=== PATIENT | male | born 1990 | race Caucasian/White ===

== ENCOUNTER 2017-06-10 12:03 | Inpatient (IN) | payer OTHER ==
[~2017-06-10] VITALS: Ht 170.2 cm; Wt 78.0 kg
[~2017-06-10 12:03] MED LIST: DEXAMETHASONE4 MG PO; DOLOGEN CAPLET1 TAB PO; RANITIDINE HCL150 MG PO; RANITIDINE HCL300 MG PO; TIGAN300 MG PO; TOBRADEX EYE DR10 ML OP
[2017-06-10] MEDS ORDERED: GENVOYA TABLET1 EACH PO (13:04)
[2017-06-23] MEDS ORDERED: Septra Ds Tablet PO (16:31)
[2017-06-23] MEDS ORDERED: PREDNISONE10 MG PO (16:31)
[2017-06-23] MEDS ORDERED: SIMVASTATIN20 MG PO (16:31)
[2017-06-23] MEDS ORDERED: CLOTRIMAZOLE10 MG MM (16:31)
[2017-06-23] MEDS ORDERED: ANUCORT-HC25 MG RECTAL (16:31)
[2017-06-23] MEDS ORDERED: PROAIR HFA8.5 GM IH (16:32)
== END 2017-06-23 16:51 | disposition home or self-care (01) | DRG 975 ==
LOC: ER 12:03 → MEDJ 06-11 13:09
PROC: 3E0F7GC Introduction of Other Therapeutic Substance into Respiratory Tract, Via Natural or Artificial Opening (ICD-10-PCS; principal; 2017-06-11)
PROC: BW24ZZZ Computerized Tomography (CT Scan) of Chest and Abdomen (ICD-10-PCS; 2017-06-13)
PROC: 4A033R1 Measurement of Arterial Saturation, Peripheral, Percutaneous Approach (ICD-10-PCS; 2017-06-13)
PROC: B246ZZZ Ultrasonography of Right and Left Heart (ICD-10-PCS; 2017-06-15)
DX: B20 Human immunodeficiency virus [HIV] disease (principal); J18.9 Pneumonia, unspecified organism; K92.2 Gastrointestinal hemorrhage, unspecified; R09.02 Hypoxemia; J20.9 Acute bronchitis, unspecified; K29.00 Acute gastritis without bleeding; E78.00 Pure hypercholesterolemia, unspecified

== ENCOUNTER 2017-12-16 21:04 | Emergency (ER) | payer OTHER ==
[~2017-12-16] VITALS: Ht 170.2 cm; Wt 78.0 kg
[~2017-12-16 21:04] MED LIST changes: +ANUCORT-HC25 MG RECTAL; +CLOTRIMAZOLE10 MG MM; +GENVOYA TABLET1 EACH PO; +PREDNISONE10 MG PO; +PROAIR HFA8.5 GM IH; +SIMVASTATIN20 MG PO; +Septra Ds Tablet PO
== END 2017-12-16 23:00 | disposition home or self-care (01) ==
LOC: ER 21:04
DX: S13.4XXA Sprain of ligaments of cervical spine, initial encounter (principal); V49.88XA Car occupant (driver) (passenger) injured in other specified transport accidents, initial encounter; Y93.89 Activity, other specified; Y92.488 Other paved roadways as the place of occurrence of the external cause; Y99.8 Other external cause status

== ENCOUNTER → 2018-01-26 | Emergency (ER) | payer OTHER ==
[~2018-01-26] VITALS: Ht 170.2 cm; Wt 76.2 kg
[~2018-01-26] MED LIST changes: +AIRBORNE EFFER1 EACH PO; +KETO10TA2 PO
== END | disposition home or self-care (01) ==
LOC: ER 18:15
DX: R10.11 Right upper quadrant pain (principal); J11.1 Influenza due to unidentified influenza virus with other respiratory manifestations

== ENCOUNTER 2018-01-29 07:29 | Emergency (ER) | payer OTHER ==
[~2018-01-29] VITALS: Ht 170.2 cm; Wt 74.8 kg
== END 2018-01-29 11:02 | disposition home or self-care (01) ==
LOC: ER 07:29
DX: B34.9 Viral infection, unspecified (principal); J00 Acute nasopharyngitis [common cold]; J32.8 Other chronic sinusitis; J45.998 Other asthma

== ENCOUNTER 2018-08-02 14:01 | Emergency (ER) | payer OTHER ==
[~2018-08-02] VITALS: Ht 170.2 cm; Wt 72.6 kg
== END 2018-08-02 20:45 | disposition home or self-care (01) ==
LOC: ER 14:01
DX: R06.02 Shortness of breath (principal); F06.4 Anxiety disorder due to known physiological condition

== ENCOUNTER 2019-02-22 08:54 | Emergency (ER) | payer OTHER ==
[~2019-02-22] VITALS: Ht 170.2 cm; Wt 75.3 kg
== END 2019-02-22 16:14 | disposition home or self-care (01) ==
LOC: ER 08:54
DX: J45.998 Other asthma (principal); B96.0 Mycoplasma pneumoniae [M. pneumoniae] as the cause of diseases classified elsewhere

== ENCOUNTER 2019-02-27 09:14 | Emergency (ER) | payer OTHER ==
[~2019-02-27] VITALS: Ht 170.2 cm; Wt 75.3 kg
== END 2019-02-27 13:44 | disposition home or self-care (01) ==
LOC: ER 09:14
DX: K52.9 Noninfective gastroenteritis and colitis, unspecified (principal)

== ENCOUNTER 2020-04-20 19:31 | Emergency (ER) | payer OTHER ==
[~2020-04-20] VITALS: Ht 170.2 cm; Wt 71.2 kg
[2020-04-21] MEDS ORDERED: ZYNCOF 20-400120 ML PO (02:05)
[2020-04-21] MEDS ORDERED: SYMBICORT 16010.2 GM IH (02:05)
[2020-04-21] MEDS ORDERED: PROAIR HFA8.5 GM IH (02:05)
[2020-04-21] MEDS ORDERED: ALBUTEROL2.5 MG/3 M IH (02:05)
[2020-04-21] MEDS ORDERED: ZITHROMAX500 MG PO (02:05)
== END 2020-04-21 02:17 | disposition home or self-care (01) ==
LOC: ER 19:31
DX: J02.9 Acute pharyngitis, unspecified (principal); Z03.818 Encounter for observation for suspected exposure to other biological agents ruled out